=== PATIENT | female | born 1975 | race Caucasian/White ===

== ENCOUNTER 2018-07-01 00:24 | Inpatient (IN) ==
[2018-07-01] MEDS ORDERED: Ondansetron ODT 4 MG TAB.RAPDIS SL ONE (01:57)
[2018-07-01] MEDS ORDERED: OXYCODONE Oral CONC 10 MG/0.5 ML ORAL.SYG SL ONE (01:57)
--- NOTE | 2018-07-01 02:52 | Emergency Department Note ---
Disposition Clinical Impression: Fracture of femur Qualifiers: Encounter type: initial encounter Femur location: neck Fracture type: closed Laterality: right Qualified Code(s): S72.001A - Fracture of unspecified part of neck of right femur, initial encounter for closed fracture Disposition: Admitted As Inpatient Condition: Good Time of Disposition: 02:59 Lower Extremity Injury HPI - General Chief Complaint: ED Extremity Injury, Lower Stated Complaint: R Hip Pain Time Seen by Provider: 07/01/18 01:34 Source: patient Limitations: no limitations Nursing Notes Reviewed: Yes Vital Signs Reviewed: Yes - History of Present Illness HPI Narrative: 42-year-old female presents with right hip pain. She describes running in the [employer] race or if she describes running one leg with some pain, however she had heard a pop and pain had worsened acutely. Since then she has been unable to ambulate. Other than that she denies any injury or trauma, fevers, chills numbness, tingling or weakness. - Related Data Home Medications Medication Instructions Recorded Confirmed Acebutolol HCl 200 mg PO DAILY 07/01/18 07/01/18 Meloxicam [Mobic] 7.5 mg PO DAILY 07/01/18 07/01/18 Allergies Allergy/AdvReac Type Severity Reaction Status Date / Time No Known Allergies Allergy Verified 07/01/18 00:38 All systems ED: reviewed and negative except as stated. Review of Systems: As Per HPI Constitutional: Denies: fever, chills Eyes: Denies: vision change ENT ED: Denies: throat pain Cardiovascular: Reports: palpitations (Chronic). Denies: chest pain, dyspnea on exertion Respiratory: Denies: dyspnea Gastrointestinal: Denies: abdominal pain, nausea, vomiting Genitourinary: Denies: dysuria Musculoskeletal: Reports: as per HPI. Denies: back pain Integumentary: Denies: rash Neurological: Denies: headache Psychiatric: Denies: depression Endocrine: Denies: fatigue Hematological/Lymphatic: Denies: easy bleeding Allergic/Immunologic: Denies: facial swelling Past Medical History - Past Medical History Medical history: Reports: other Psychiatric history: Reports: no psych history - Social History Smoking Status: Never smoker Alcohol use: Reports: occasionally Drug use: Reports: none Physical Exam - General Limitations: no limitations General appearance: alert, in no apparent distress - Head Head exam: atraumatic, normocephalic - Eye Eye exam: Present: EOMI - ENT ENT exam: normal oropharynx, mucous membranes moist - Neck Neck exam: Present: normal inspection, full ROM - Chest Chest inspection: Present: normal inspection, symmetric chest wall rise - Respiratory Respiratory exam: Present: normal lung sounds bilaterally. Absent: respiratory distress, wheezes - Cardiovascular Cardiovascular exam: Present: regular rate, normal rhythm - Abdominal Exam Abdominal exam: Present: soft, Non-Tender - Expanded Lower Extremity Exam Hip/Pelvis exam: Absent: full ROM (right) Course Course Narrative: Patient arrives via private vehicle with complaint of right hip pain that had started while running the long distance race earlier today. She had heard a pop. Unable to ambulate. On examination no neurovascular deficits. Good distal pulses. There is some mild external rotation and limited range of motion of her right hip. Images reviewed, and does appear to be a right femoral neck fracture. We will await formal read. Analgesics ordered. - Reevaluation(s) Reevaluation #1: Right femoral neck fracture. On x-ray. We will plan for ortho consult and likely admission. Time: 02:45 - Consultations Consultation #1: Patient and x-ray were discussed with on-call orthopedic surgeon Dr. Kauffman who advised to admit to the hospitalist and agreed to see patient. Time: 02:52 Consultation #2: Patient was again discussed with Dr. Kauffman who had reviewed x-ray. He feels that this is something that can be fixed versus replaced. He has requested a CAT scan of the right hip without contrast and anticipate surgery Tuesday (07/01/2018) morning. Time: 02:55 Vital Signs Temperature 97.9 F 07/01/18 00:35 Pulse Rate 66 07/01/18 00:35 Respiratory Rate 16 07/01/18 00:35 Blood Pressure 102/60 07/01/18 00:35 O2 Sat by Pulse Oximetry 99 07/01/18 00:35 Temperature 97.9 F 07/01/18 04:49 Pulse Rate 63 07/01/18 04:49 Respiratory Rate 20 07/01/18 04:49 Blood Pressure 105/72 07/01/18 04:49 O2 Sat by Pulse Oximetry 98 07/01/18 04:49 Oxygen Delivery Oxygen Delivery Room Air Extremity Injury, Lower - MDM Narrative Medical decision making narrative: Patient presented with right hip pain that appeared to started acutely tonight after some long distance running. Workup tonight shows right femoral neck fracture. Patient was discussed with on-call orthopedic provider who advised for admission and likely surgery. Patient was accepted by hospitalist. Vitals normal. Blood work unremarkable. Patient discussed with attending Dr. Gilman who also had face time with patient agreed with workup and admission. Hip X-Ray 07/01/18 00:38 IMPRESSION: Right femoral neck fracture. D/ / Gaetano Garber / Gaetano Garber Interpreting Provider: Gaetano Garber Hip CT 07/01/18 02:56 IMPRESSION: 1. Acute mildly impacted and angulated right hip femoral neck fracture. Normal right hip alignment. 2. 3.5 cm probably benign right ovarian cyst, see recommendations. RECOMMENDATIONS: Recommend follow-up pelvic US in 6-12 weeks. Reference: J Am Sanchez Radiol 2013;10:[id number]. D/ / Roland Tran MD / Roland Tran MD Interpreting Provider: Roland Tran MD Laboratory Tests 07/01/18 07/01/18 07/01/18 03:10 03:10 03:10 WBC 10.1 RBC 4.22 Hgb 13.4 Hct 39.2 MCV 92.9 MCH 31.8 MCHC 34.2 RDW 12.2 Plt Count 193 MPV 10.0 Immature Gran % 0.4 Seg Neutrophils % 81.3 Lymphocytes % 8.4 Monocytes % 8.7 Eosinophils % 0.7 Basophils % 0.5 Neutrophils # 8.2 Lymphocytes # 0.9 Monocytes # 0.9 Eosinophils # 0.1 Basophils # 0.1 Sodium 137 Potassium 3.7 Chloride 102 Carbon Dioxide 28 BUN 24 H Creatinine 0.72 Est GFR ( Amer) > 60 Est GFR (Non-Af Amer) > 60 BUN/Creatinine Ratio 33 H Glucose 98 Calculated Osmolality 288 Calcium 9.4 Serum , Qual Negative - Lab Data Result diagrams: 07/01/18 03:10 07/01/18 03:10 Lab Results 07/01/18 07/01/18 07/01/18 Range/Units 03:10 03:10 03:10 WBC 10.1 (4.3-11.1) K/mcL RBC 4.22 (3.82-4.97) M/mcL Hgb 13.4 (11.5-15.4) g/dL Hct 39.2 (35.3-44.9) % MCV 92.9 (83.0-100.0) fL MCH 31.8 (28.0-33.3) pg MCHC 34.2 (31.6-35.5) g/dL RDW 12.2 (11.5-14.5) % Plt Count 193 (140-400) K/mcL MPV 10.0 (9.4-12.4) fL Immature Gran % 0.4 (0-4) % Seg Neutrophils % 81.3 % Lymphocytes % 8.4 % Monocytes % 8.7 % Eosinophils % 0.7 % Basophils % 0.5 % Neutrophils # 8.2 (1.6-8.9) K/mcL Lymphocytes # 0.9 (0.6-4.6) K/mcL Monocytes # 0.9 (0.0-1.3) K/mcL Eosinophils # 0.1 (0.0-0.6) K/mcL Basophils # 0.1 (0.0-0.2) K/mcL Sodium 137 (136-145) mEq/L Potassium 3.7 (3.5-5.1) mEq/L Chloride 102 (98-107) mEq/L Carbon Dioxide 28 (23-29) mEq/L BUN 24 H (6-20) mg/dL Creatinine 0.72 (0.60-1.20) mg/dL Est GFR ( Amer) > 60 (> 60) Est GFR (Non-Af Amer) > 60 (> 60) BUN/Creatinine Ratio 33 H (6-26) Glucose 98 (70-105) mg/dL Calculated Osmolality 288 (280-300) Calcium 9.4 (8.6-10.3) mg/dL Serum , Qual Negative (Negative) - Radiology Data Radiology results reviewed: Yes I reviewed the patient's radiology results.
[2018-07-01 03:23] LABS: Basophils # 0.1 K/mcL (0.0-0.2); Basophils % 0.5 %; Eosinophils # 0.1 K/mcL (0.0-0.6); Eosinophils % 0.7 %; Hematocrit 39.2 % (35.3-44.9); Hemoglobin 13.4 g/dL (11.5-15.4); Immature Granulocytes % 0.4 % (0-4); Lymphocytes # 0.9 K/mcL (0.6-4.6); Lymphocytes % 8.4 %; Mean Corpuscular HGB Conc 34.2 g/dL (31.6-35.5); Mean Corpuscular Hemoglobin 31.8 pg (28.0-33.3); Mean Corpuscular Volume 92.9 fL (83.0-100.0); Monocytes # 0.9 K/mcL (0.0-1.3); Monocytes % 8.7 %; Neutrophils # 8.2 K/mcL (1.6-8.9); Platelet Count 193 K/mcL (140-400); Red Blood Count 4.22 M/mcL (3.82-4.97); Red Cell Distribution Width 12.2 % (11.5-14.5); Segmented Neutrophils % 81.3 %
[2018-07-01] MEDS ORDERED: *HR* HYDROmorphone 2 MG/ML SYRINGE IVP ONE (03:23)
[2018-07-01] MEDS ORDERED: 0.9 % Sodium Chloride 1,000 ML IVC SCH (03:30)
[2018-07-01 03:42] LABS: BUN/Creatinine Ratio 33 (6-26); Blood Urea Nitrogen 24 mg/dL (6-20); Calcium 9.4 mg/dL (8.6-10.3); Carbon Dioxide 28 mEq/L (23-29); Chloride 102 mEq/L (98-107); Glucose 98 mg/dL (70-105); Osmolality,Calculated 288 (280-300); Potassium 3.7 mEq/L (3.5-5.1); Sodium 137 mEq/L (136-145); eGFR For Non-African Americans > 60 (> 60)
--- NOTE | 2018-07-01 03:44 | Emergency Department Note ---
Disposition Clinical Impression: Fracture of femur Qualifiers: Encounter type: initial encounter Femur location: neck Fracture type: closed Laterality: right Qualified Code(s): S72.001A - Fracture of unspecified part of neck of right femur, initial encounter for closed fracture Disposition: Admitted As Inpatient Condition: Good Referrals: Meagan Crockett CNP [Primary Care Provider] - Forms: ED Satisfaction Letter General Adult HPI - General Chief complaint: ED Extremity Injury, Lower Stated complaint: R Hip Pain Time Seen by Provider: 07/01/18 01:34 Source: patient Limitations: no limitations Nursing Notes Reviewed: Yes Vital Signs Reviewed: Yes - History of Present Illness Pain Scale: 7 - Related Data Allergies Allergy/AdvReac Type Severity Reaction Status Date / Time No Known Allergies Allergy Verified 07/01/18 00:38 Constitutional: Denies: fever, chills Eyes: Denies: vision change ENT ED: Denies: throat pain Cardiovascular: Reports: palpitations (Chronic). Denies: chest pain, dyspnea on exertion Respiratory: Denies: dyspnea Gastrointestinal: Denies: abdominal pain, nausea, vomiting Genitourinary: Denies: dysuria Musculoskeletal: Reports: as per HPI. Denies: back pain Integumentary: Denies: rash Neurological: Denies: headache Psychiatric: Denies: depression Endocrine: Denies: fatigue Hematological/Lymphatic: Denies: easy bleeding Allergic/Immunologic: Denies: facial swelling Past Medical History - Past Medical History Medical history: Reports: other Psychiatric history: Reports: no psych history - Social History Smoking Status: Never smoker Alcohol use: Reports: occasionally Drug use: Reports: none Physical Exam - General Limitations: no limitations General appearance: alert, in no apparent distress Course Vital Signs Temperature 97.9 F 07/01/18 00:35 Pulse Rate 66 07/01/18 00:35 Respiratory Rate 16 07/01/18 00:35 Blood Pressure 102/60 07/01/18 00:35 O2 Sat by Pulse Oximetry 99 07/01/18 00:35 Temperature 97.9 F 07/01/18 00:35 Pulse Rate 81 07/01/18 03:16 Respiratory Rate 20 07/01/18 03:16 Blood Pressure 117/70 07/01/18 03:16 O2 Sat by Pulse Oximetry 97 07/01/18 03:16 Oxygen Delivery Oxygen Delivery Room Air Medical Decision Making - Lab Data Result diagrams: 07/01/18 03:10 Lab Results 07/01/18 Range/Units 03:10 WBC 10.1 (4.3-11.1) K/mcL RBC 4.22 (3.82-4.97) M/mcL Hgb 13.4 (11.5-15.4) g/dL Hct 39.2 (35.3-44.9) % MCV 92.9 (83.0-100.0) fL MCH 31.8 (28.0-33.3) pg MCHC 34.2 (31.6-35.5) g/dL RDW 12.2 (11.5-14.5) % Plt Count 193 (140-400) K/mcL MPV 10.0 (9.4-12.4) fL Immature Gran % 0.4 (0-4) % Seg Neutrophils % 81.3 % Lymphocytes % 8.4 % Monocytes % 8.7 % Eosinophils % 0.7 % Basophils % 0.5 % Neutrophils # 8.2 (1.6-8.9) K/mcL Lymphocytes # 0.9 (0.6-4.6) K/mcL Monocytes # 0.9 (0.0-1.3) K/mcL Eosinophils # 0.1 (0.0-0.6) K/mcL Basophils # 0.1 (0.0-0.2) K/mcL - Radiology Data Radiology results reviewed: Yes I reviewed the patient's radiology results. Hip X-Ray 07/01/18 00:38 IMPRESSION: Right femoral neck fracture. D/ / Gaetano Garber / Gaetano Garber Interpreting Provider: Gaetano Garber Attestation Statement - Attestation Attestation: I, Luis Gilman MD, personally evaluated this patient and discussed their management with the midlevel provicer, PAC/[employer]ILE B[employer] SEWER. I reviewed the midlevel provider's note and agree with the documented findings, medical decision making, and plan of care. 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 She did not fall. She was able to ambulate on the hip but had pain with weightbearing. She states she has been having some mild discomfort in the right hip area recently. No known injury. On examination patient is a well-developed thin female in no acute distress. She is alert and oriented 3. There is no cyanosis or diaphoresis. Breath sounds are clear and equal bilaterally. Heart regular rate and rhythm. Range of motion is limited in the right hip secondary to pain. There is mild shortening. Neurovascular function intact distally. X-ray shows a femoral neck fracture. The orthopedist, Dr. Kauffman, was consulted and recommended admission to the hospitalist service and he will consult on the patient to repair the hip fracture. The hospitalist, Dr. Tafoya, was consulted and accepted admission of the patient.
--- NOTE | 2018-07-01 06:43 | Orthopedic Consult Note ---
Date of Encounter: 07/01/18 Time of Encounter: 06:40 History of Present Illness HPI: Ms. 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 Patient reports right hip pain over the past couple weeks. No treatment. Patient was running the race this evening felt a pop in her hip was able to bear weight. Patient denies any previous injuries denies any head trauma or loss of consciousness. Past medical history noncontributory Surgical history history of bowel surgery No known drug allergies Review of systems denies chest pain shortness of breath denies blurry vision Physical exam Alert and oriented 3 Normocephalic atraumatic Right lower extremity Decreased range of motion secondary to pain Neurovascular intact Assessment and plan I reviewed her x-rays show a basicervical femoral neck fracture. With mild angulation. There is a significant concern for avascular necrosis developing. Patient will be taken urgently to the OR for closed reduction percutaneous pinning. We reviewed the risks and benefits as well as recovery. All questions were answered. The patient agreed to this treatment plan and acknowledged an understanding of the treatment plan as described. Past Med Surg Social Fam HX - Past Medical History Medical history: other Additional medical history: ulcerative colitis Psychiatric history: no psych history - Past Surgical History Additional surgical history: partial colectomy - Social History Smoking Status: Never smoker Alcohol use: occasionally Drug use: none Medications and Allergies Acebutolol HCl 200 mg PO DAILY 07/01/18 [History] Meloxicam [Mobic] 7.5 mg PO DAILY 07/01/18 [History] Allergy/AdvReac Type Severity Reaction Status Date / Time No Known Allergies Allergy Verified 07/01/18 00:38 All Systems Reviewed: The remainder of the systems were reviewed and are negative Physical Exam - Constitutional Vitals: Temp Pulse Resp BP Pulse Ox 97.9 F 63 20 105/72 98 07/01/18 04:49 07/01/18 04:49 07/01/18 04:49 07/01/18 04:49 07/01/18 04:49 Results - Labs Result Diagrams: 07/01/18 03:10 07/01/18 03:10 Labs: Abnormal lab results BUN 24 mg/dL (6-20) H 07/01/18 03:10 BUN/Creatinine Ratio 33 (6-26) H 07/01/18 03:10 H & H 07/01/18 Range/Units 03:10 Hgb 13.4 (11.5-15.4) g/dL Hct 39.2 (35.3-44.9) % All other labs normal. Consult Discharge Plan - Plan Referrals: Meagan Crockett, SHAINA [Primary Care Provider] -
[2018-07-01] MEDS ORDERED: *HR* Propofol 200 MG/20 ML VIAL IVP ONE (07:04)
[2018-07-01] MEDS ORDERED: *HR* Midazolam HCl 2 MG/2 ML VIAL ONE (07:04)
[2018-07-01] MEDS ORDERED: *HR* FentaNYL (PF) 100 MCG/2 ML VIAL ONE (07:04)
--- NOTE | 2018-07-01 07:17 | Anesthesia Evaluation PreOp ---
Date of Encounter: 07/01/18 Time of Encounter: 07:15 - Past History Planned Operation: Right Hip Pinning Cardiac History: Arrhythmia Pulmonary History: Denies Any Significant HX VEGETABLE VENDOR History: Denies Any Significant HX Other Medical History: Other (H/O ulcerative colitis S/P colectomy) Anesthesia History: No Prior Anesthetic Complications, Past Anesthesia (colectomy) Alcohol Use: occasionally Drug use: none Medications and Allergies Acebutolol HCl 200 mg PO DAILY 07/01/18 [History] Meloxicam [Mobic] 7.5 mg PO DAILY 07/01/18 [History] Allergy/AdvReac Type Severity Reaction Status Date / Time No Known Allergies Allergy Verified 07/01/18 00:38 - Meds/Allergy Pre-op Review Medications Reviewed: Yes Allergies Reviewed: Yes Beta Blockers on Current Med List: No Anesthesia Results - Labs 07/01/18 03:10 07/01/18 03:10 Anesthesia Exam Vital Signs/O2 Sat, Most Current Temp Pulse Resp BP Pulse Ox 97.9 F 63 20 105/72 98 07/01/18 04:49 07/01/18 04:49 07/01/18 04:49 07/01/18 04:49 07/01/18 04:49 Height: 5'6''/1.68m Weight: 126 lbs/57 kg NPO (# of Hours): 8 Pain Scale: 0 Pain Scale Used: Numeric (1 - 10) - HEENT Pupil (Motor): EOMI Mallampati: II Teeth: Normal Oral Opening: Greater than 3 - VEGETABLE VENDOR LOC: Oriented VEGETABLE VENDOR Motor: Normal RUE, Normal LUE, Normal RLE, Normal LLE, Normal Face VEGETABLE VENDOR Sensory: Normal: RUE, LUE, RLE, LLE, Face - Cardiac Rhythm: Regular Murmur: None - Pulmonary Breath Sounds: bilateral Clear Respiratory Effort: Symmetrical Anesthesia Assess/Plan ASA Score: 2 Level of consciousness: Cooperative, Oriented, Tranquil Anesthetic Plan: General Monitoring Plan: Standard Monitors Recovery Plan: PACU
[2018-07-01] MEDS ORDERED: Lidocaine -MPF 2% 2 ML VIAL ONE (07:21)
[2018-07-01] MEDS ORDERED: Ondansetron 4 MG/2 ML VIAL ONE (07:21)
[2018-07-01] MEDS ORDERED: Acetaminophen IV 1,000 MG/100 ML INFUS..BTL ONE (07:35)
[2018-07-01] MEDS ORDERED: *HR* OxyCODONE Immed Rel 5 MG TABLET PO PRN ×2 (07:36→09:19)
[2018-07-01] MEDS ORDERED: *HR* Promethazine 25 MG/ML VIAL IVP PRN (07:36)
[2018-07-01] MEDS ORDERED: *HR* HYDROmorphone (PF) 1 MG/ML SYRINGE IVP PRN (07:36)
[2018-07-01] MEDS ORDERED: Ondansetron 4 MG/2 ML VIAL IVP ONE (07:36)
[2018-07-01] MEDS ORDERED: EPHEDrine 50 MG/ML VIAL ONE (07:53)
[2018-07-01] MEDS ORDERED: Ketorolac 30 MG/ML VIAL ONE (08:09)
[2018-07-01] MEDS ORDERED: *HR* PHENYLEPHRINE 1,000 MCG/10 ML SYRINGE IVP ONE (08:10)
[2018-07-01] MEDS ORDERED: Dexamethasone 4 MG/ML VIAL ONE (08:10)
--- NOTE | 2018-07-01 08:31 | Orthopedic Operative Note ---
Date of procedure: 07/01/18 Pre-op diagnosis: Mildly displaced right femoral neck fracture Post-op diagnosis: same Procedure: Procedure: Right hip closed reduction percutaneous pinning Estimated blood loss: 10 cc Hardware:Synthes 3 7.3 cannulated metal screws Operative procedure: The patient was brought to the operating room and placed on the operating room table. After general anesthesia was administered the well leg was place in the well leg ernandez and the operative leg was placed in the fracture leg ernandez. All pressure points were padded appropriately. The operative extremity was prepped and draped in the sterile surgical fashion patient received IV antibiotic prior to skin incision. Using fluoroscopic assistance a guidepin was placed through a small stab incision on the lateral aspect of the femur. Placed through the lateral femur across the fracture site into the femoral head position of the guidepin was found to be acceptable in AP and lateral planes. A second guidepin was placed in an appropriate position and confirmed with fluoroscopy, followed by a third pin in a similar fashion. All guidepins were found to be acceptable in the AP and lateral planes as well as the fracture reduction. 3 7.3 cannulated screws were placed over the guidepins, and their position was confirmed with fluoroscopy as well. Hardware as well as fracture site was well reduced and well positioned. Wound was irrigated and closed with a PDS and 2-0 Monocryl suture The patient was placed in a sterile dressing The patient was extubated and transferred to the recovery room in stable condition. Anesthesia: GETA Surgeon: Ahsan Kauffman Was there an veterinary technician assistant present: No Estimated blood loss (cc): 10 Condition: stable Disposition: PACU
--- NOTE | 2018-07-01 08:55 | Anesthesia Evaluation Post Op ---
Date of Encounter: 07/01/18 Time of Encounter: 08:55 - Vital Signs Vital Signs: Vital Signs/O2 Sat, Most Current Temp Pulse Resp BP Pulse Ox 98.8 F 112 18 117/78 96 07/01/18 08:34 07/01/18 08:44 07/01/18 08:44 07/01/18 08:44 07/01/18 08:44 - Lungs Lungs: Clear Ascult./Percussion - Airway Airway: Non-obstructed - Cardiovascular Regular Rate - Mental Status Mental Status: Alert & Oriented, Answers Appropriately - Pain Pain Scale: 0 Pain Scale used: Numeric (1 - 10) - Nausea Vomiting Nausea Vomiting: Not Present - Hydration Hydration: Ice chips, Has not voided - Discharge PostOp Status: Transfer Patient to floor
[2018-07-01] MEDS ORDERED: *HR* OxyCODONE/APAP 5/325 TABLET PO PRN (09:19)
[2018-07-01] MEDS ORDERED: traMADol 50 MG TABLET PO PRN (09:19)
--- NOTE | 2018-07-01 11:27 | Internal Med History&Physical ---
Date of Encounter: 07/01/18 Time of Encounter: 08:00 Internal Medicine - H&P: HPI Chief complaint: Right leg pain Admitted From: Home History of present illness: Patient is a 42-year-old female with no significant past medical history who presents due to right leg pain. She reports while running a race earlier today she experienced sharp right hip pain after experiencing a pop. Recent was not able to ambulate and was brought into the ER for further evaluation. In the ER patient was found to have acute mildly impacted and angulated right hip femoral neck fracture. Orthopedics consulted from the ER and patient taken for surgery today and is now status post right hip closed reduction percutaneous pinning Past Med Surg Social Fam HX - Past Medical History Medical history: other Additional medical history: ulcerative colitis Psychiatric history: no psych history - Past Surgical History Additional surgical history: partial colectomy - Social History Smoking Status: Never smoker Alcohol use: occasionally Drug use: none - Additional Family History Additional family history: Noncontributory Internal Medicine - H&P: Meds Acebutolol HCl 200 mg PO DAILY 07/01/18 [History] Aspirin Enteric Coated [Aspirin EC] 162 mg PO BID #20 tablet. 07/01/18 [Rx] HYDROcodone/Acet 5/325 mg [[place] 5-325 mg] 1 tab PO Q6H PRN 5 Days #20 tab 07/01/18 [Rx] Meloxicam [Mobic] 7.5 mg PO DAILY 07/01/18 [History] Allergy/AdvReac Type Severity Reaction Status Date / Time No Known Allergies Allergy Verified 07/01/18 00:38 All Systems PM: A 10-system review of systems was performed and is negative for pertinent findings except as documented above in the HPI. - Constitutional Vitals: Temp Pulse Resp BP Pulse Ox 98.1 F 66 14 98/57 98 07/01/18 10:17 07/01/18 10:17 07/01/18 10:17 07/01/18 10:17 07/01/18 10:17 Exam: General appearance: Present: A&O X 3, no acute distress - Head Head exam: Present: normocephalic - Eye Eye exam: Present: normal appearance - ENT ENT exam: Present: mucous membranes moist - Respiratory Respiratory exam: Present: CTAB. Absent: accessory muscle use, rales, rhonchi, wheezes - Cardiovascular Cardiovascular exam: Present: RRR, +S1, +S2. Absent: diastolic murmur, gallop, rubs, systolic murmur - GI/Abdominal GI/Abdominal exam: Present: normal bowel sounds, soft, no peritoneal signs. Absent: distended, tenderness - Extremities Exam Extremities exam: Absent: pedal edema - Neurological Exam Neurological exam: Present: alert, oriented X3, no focal deficits. Absent: altered - Psychiatric Psychiatric exam: -normal mood Skin exam: -normal color Internal Med - H&P Results - Labs CBC & Chem 7: 07/01/18 03:10 07/01/18 03:10 Labs: Short CBC 07/01/18 Range/Units 03:10 WBC 10.1 (4.3-11.1) K/mcL Hgb 13.4 (11.5-15.4) g/dL Hct 39.2 (35.3-44.9) % Plt Count 193 (140-400) K/mcL Neutrophils # 8.2 (1.6-8.9) K/mcL BMP 07/01/18 03:10 Sodium 137 Potassium 3.7 Chloride 102 Carbon Dioxide 28 BUN 24 H Creatinine 0.72 Glucose 98 Calcium 9.4 - Impressions ITS Impressions Fluoroscopy 07/01/18 00:00 IMPRESSION: Intraprocedural fluoroscopic spot images as above. See separate procedure report for more information. D/ / Gary Purdy MD / Gary Purdy MD Interpreting Provider: Gary Purdy MD Hip X-Ray 07/01/18 00:00 IMPRESSION: Intraprocedural fluoroscopic spot images as above. See separate procedure report for more information. D/ / Gary Purdy MD / Gary Purdy MD Interpreting Provider: Gary Purdy MD Hip X-Ray 07/01/18 00:38 IMPRESSION: Right femoral neck fracture. D/ / Gaetano Garber / Gaetano Garber Interpreting Provider: Gaetano Garber Hip CT 07/01/18 02:56 IMPRESSION: 1. Acute mildly impacted and angulated right hip femoral neck fracture. Normal right hip alignment. 2. A 3.5 cm probably benign right ovarian cyst, see recommendations. RECOMMENDATIONS: Recommend follow-up pelvic US in 6-12 weeks. Reference: J Am Sanchez Radiol 2013;10:[id number]. D/ / 07/01/2018 08:58:25 Roland Tran MD / mayda Interpreting Provider: Roland Tran MD - Assessment and Plan (1) Fracture of femur Current Visit: Yes Status: Acute Assessment and plan: In the ER patient was found to have acute mildly impacted and angulated right hip femoral neck fracture. Orthopedics consulted from the ER and patient taken for surgery today and is now status post right hip closed reduction percutaneous pinning Qualifiers: Encounter type: initial encounter Femur location: neck Fracture type: closed Laterality: right Qualified Code(s): S72.001A - Fracture of unspecified part of neck of right femur, initial encounter for closed fracture (2) DVT prophylaxis Current Visit: Yes Status: Acute Assessment and plan: scds - Time Spent With Patient Total time spent is greater than 50% in coordination of care (as documented) at patient's floor/unit and/or counseling patient: - VTE Documentation of Mechanical Device: Intermittent pneumatic compression device
[2018-07-01] MEDS ORDERED: Naloxone 0.4 MG/ML INJ IVP PRN (11:34)
[2018-07-01 12:15] VITALS: BP 95/58
--- NOTE | 2018-07-02 07:52 | Discharge Summary ---
Date of Encounter: 07/01/18 Time of Encounter: 11:00 - Discharge Diagnosis (1) Fracture of femur Priority: Primary Status: Acute Qualifiers: Encounter type: initial encounter Femur location: neck Fracture type: closed Laterality: right Qualified Code(s): S72.001A - Fracture of unspecified part of neck of right femur, initial encounter for closed fracture Hospital course: Patient is a 42-year-old female with no significant past medical history who presents due to right leg pain. She reports while running a race earlier today she experienced sharp right hip pain after experiencing a pop. Recent was not able to ambulate and was brought into the ER for further evaluation. In the ER patient was found to have acute mildly impacted and angulated right hip femoral neck fracture. Orthopedics consulted from the ER and patient taken for surgery today with recommendations for a post right hip closed reduction percutaneous pinning was done later in the afternoon. Patient is medically stable and okay for discharge per orthopedics. Patient will be discharged to follow-up with orthopedic as an outpatient. - Time Spent with Patient Total time spent providing and/or coordinating discharge services: - Discharge Medications Prescriptions: New Aspirin Enteric Coated [Aspirin EC] 162 mg PO BID #20 tablet. HYDROcodone/Acet 5/325 mg [Kent 5-325 mg] 1 tab PO Q6H PRN 5 Days #20 tab PRN Reason: Pain No Action Acebutolol HCl 200 mg PO DAILY Meloxicam [Mobic] 7.5 mg PO DAILY Home Medications: Acebutolol HCl 200 mg PO DAILY 07/01/18 [History] Aspirin Enteric Coated [Aspirin EC] 162 mg PO BID #20 tablet. 07/01/18 [Rx] HYDROcodone/Acet 5/325 mg [Kent 5-325 mg] 1 tab PO Q6H PRN 5 Days #20 tab 07/01/18 [Rx] Meloxicam [Mobic] 7.5 mg PO DAILY 07/01/18 [History] Allergies/Adverse Reactions: Allergy/AdvReac Type Severity Reaction Status Date / Time No Known Allergies Allergy Verified 07/01/18 00:38 Date of admission: 07/01/18 07:16 Primary care physician: Meagan Crockett CNP Consults: 07/01/18 02:51 Consult to Orthopedic Surgery [CONS] Stat Consulting Provider: Orthoped[facility] Reason for Consult: r femoral neck fracture Call Completed: Yes 07/01/18 09:19 Consult to Orthopedic Navigator [CONS] [CONS] Routine Consult to Physical Therapy [CONS] Routine Comment: Evaluate, develop and implement POC Reason for Consult: post hip surgery Does patient have active BEDREST order?: No Is patient medically & hemodynamically stable?: Yes Patient assessed for mobility or mobilized this visit?: Yes RT Post Op Consult [CONS] Routine - Constitutional Vitals: Temp Pulse Resp BP Pulse Ox 98.3 F 80 14 95/58 97 07/01/18 12:33 07/01/18 12:33 07/01/18 12:33 07/01/18 11:56 07/01/18 12:33 Exam: General appearance: Present: A&O X 3, no acute distress - Head Head exam: Present: normocephalic - Eye Eye exam: Present: normal appearance - ENT ENT exam: Present: mucous membranes moist - Respiratory Respiratory exam: Present: CTAB. Absent: accessory muscle use, rales, rhonchi, wheezes - Cardiovascular Cardiovascular exam: Present: RRR, +S1, +S2. Absent: diastolic murmur, gallop, rubs, systolic murmur - GI/Abdominal GI/Abdominal exam: Present: normal bowel sounds, soft, no peritoneal signs. Absent: distended, tenderness - Extremities Exam Extremities exam: Absent: pedal edema - Neurological Exam Neurological exam: Present: alert, oriented X3, no focal deficits. Absent: altered - Psychiatric Psychiatric exam: -normal mood Skin exam: -normal color - Patient Status Disposition: Home, Self-Care Condition: Good - Discharge Instructions Instructions: Hydrocodone/Acetaminophen (By mouth), Leg Fracture (DC) Follow Up With: Meagan Crockett BUSINESS ANALYTICS DIRECTOR [Primary Care Provider] - Additional Instructions: Discharge Instructions: Right Hip Repair Please call [facility] ([phone]), your Primary Care Physician, or report to the Emergency Room if you have any of the following symptoms: Nausea, vomiting, fever greater that 101.5, swelling, chest pain, shortness of breath, increased pain/redness/drainage/odor for your incision site, numbness/tingling, or any other concerning symptoms. ACTIVITY: Non weight-bearing to right lower ext until follow up appointment.You do not need to sleep with a pillow between your legs. You can also sleep on the operative side or on your stomach. Incentive Spirometer 10 times an hour. MEDICATIONS: Upon discharge resume your home medications. Take all the medications as prescribed. Take a stool softener if taking narcotic pain medications. Stool softeners are only effective if you drink enough fluids. Drink 6-8 glass of water or fluids a day, unless this is not allowed for another health problem. Despite using stool softeners, if you haven't had a bowel movement in 3 days, please switch to a gentle laxative. Gentle laxatives are sold over the counter. You should have a bowel movement within 24 hours, if not call the office. You will be discharged from the hospital with a prescription for pain medication. You are encouraged to decrease the use of narcotic pain medication as tolerated. Should you require a refill, please call the office. [facility] prescribes narcotic pain medication for only 4-6 weeks after surgery. If you require pain medication beyond this time period, you may be referred to your Primary Care Physician or to the Pain Clinic for further evaluation. Plan ahead for refills on pain medication as many narcotics either need to be picked up at the office or mailed. It is best to call 48-72 hours in advance of needing a prescription refill so you don't run out of medication. To help control the post-operative pain, you may take NSAIDs (Aleve,Advil, Motrin, ibuprofen, naprosyn) or Tylenol as prescribed on the bottle in addition to the pain medication. ANTICOAGULATION (blood thinners): Continue your Aspirin, Lovenox or Coumadin as prescribed to help prevent a blood clot in the leg or in the lungs. As long as your incision remains dry and you tolerate the NSAIDs (Aleve, Advil, Motrin, Ibuprofen, Naprosyn), it is OK to use the NSAIDS while you are taking your anticoagulation medication. Should your incision start to drain, stop the NSAID and contact our office. Common symptoms of blood clot in the legs include: localized pain, swelling, calf tenderness, redness or discoloration of the skin. Blood clot in the lung symptoms include: shortness of breath, rapid pulse, sweating, and chest pain that worsens with deep breathing, coughing up blood, lightheadedness, feelings of anxiety. If you experience any of these symptoms notify your physician immed iately, go to the emergency room, or if having trouble breathing, call 911. WOUND CARE: Leave the dressing on for 7 to 10days. You may change the dressing if it is saturated greater than 50%. Do not get the dressing wet at anytime. Wash your hands with antibacterial soap, rinse and dry prior to any wound care. If you have annabelle the visiting nurse or rehab facility can remove the stapes 10-14 days after surgery and place steri-strips across the wound. Leave the steri-strips in place until they fall off on their own. You may let water from the shower run on top of the steri-strips. If you do not have a visiting nurse or rehab facility, you will need to return to the office at 10-14 days for the annabelle to be removed. If you have itching or redness around the dressing call the office. FOLLOW-UP: Please follow up with your surgeon in the orthopedic clinic in 7 days from the day of surgery. If you have annabelle that need to be removed, you will need to come back to the office in 10-14 days from the day of surgery. - VTE Documentation of Mechanical Device: Intermittent pneumatic compression device
== END 2018-07-01 13:42 | disposition home or self-care (01) | DRG 482 ==
LOC: EMEROOARM 00:24 → 2SOUTHHOLD 00:24
PROVIDERS: ADMIT Internal Medicine; ATTEND Internal Medicine